=== PATIENT | female | born 1985 | race Caucasian/White ===

== ENCOUNTER 2017-01-09 10:45 | Inpatient (IN) ==
[2017-01-09] MEDS ORDERED: PEPCID IV PRN (11:49)
[2017-01-09] MEDS ORDERED: LR 500 ML IV ONE (11:49)
[2017-01-09] MEDS ORDERED: REGLAN PO ONE (11:49)
[2017-01-09] MEDS ORDERED: PEPCID PO PRN (11:49)
[2017-01-09] MEDS ORDERED: PITOCIN 30 UNITS/LR 30 UNITS/500 ML IV.SOLN IV SCH (11:49)
[2017-01-09] MEDS ORDERED: ZOFRAN IV PRN (11:49)
[2017-01-09] MEDS ORDERED: TYLENOL PO PRN (11:49)
[2017-01-09] MEDS ORDERED: PEPCID PO ONE (11:49)
[2017-01-09] MEDS ORDERED: KEFZOL 1 GM/D5W 1 GM/50 ML IVPB IV PRN (11:49)
[2017-01-09] MEDS ORDERED: STADOL IV PRN (11:49)
[2017-01-09 11:55] LABS: URINE SOURCE VOIDED
[2017-01-09] MEDS ORDERED: CLINDAMYCIN 900 MG/NS 900 MG/50 ML IVPB IV SCH (12:00)
[2017-01-09] MEDS ORDERED: SODIUM CHLORIDE 0.9% INJ SCH (12:00)
[2017-01-09] MEDS: LR 1,000 ML IV SCH ×2 (12:10→12:52)
[2017-01-09 12:24] LABS: MANUAL DIFF NEEDED? NO
[2017-01-09 12:32] LABS: BASO% 0.2 % (0.0-0.8); EOS# 0.03 X1000 (0.0-0.7); EOS% 0.3 % (0.0-10.0); HEMATOCRIT 42.3 % (37.0-47.0); HEMOGLOBIN 14.2 g/dL (12.0-16.0); IMM GRAN# 0.05 X1000 (0.0-0.04); IMM GRAN% 0.5 % (0.0-0.5); LYMPH# 2.31 X1000 (1.2-3.4); LYMPH% 22.4 % (20.5-51.1); MCH 28.5 PG (27-31); MCHC 33.6 g/dL (33-37); MCV 84.8 FL (81-99); MONO# 0.72 X1000 (0.11-0.59); MPV 10.4 FL (7.4-10.4); NEUT% 69.6 % (42.2-75.2); PLT 218 X1000 (130-400); RBC 4.99 XMIL (4.2-5.4)
[2017-01-09 12:40] LABS: BILIRUBIN URINE NEGATIVE (NEGATIVE); BLOOD URINE TRACE (NEGATIVE); CLARITY CLEAR (CLEAR); COLOR YELLOW; GLUCOSE URINE NEGATIVE (NEGATIVE); LEUKOCYTES URINE NEGATIVE (NEGATIVE); NITRITE URINE NEGATIVE (NEGATIVE); PH URINE 6.5; PROTEIN URINE NEGATIVE (NEGATIVE); SP GRAVITY URINE 1.015; UROBILINOGEN URINE NORMAL
[2017-01-09] MEDS ORDERED: FENTANYL-BUPIV-NS 2 MCG-0.1% 200 ML EPIDURAL SCH (14:00)
[2017-01-09] MEDS ORDERED: MINERAL OIL TOP ONE (14:10)
[2017-01-09] MEDS ORDERED: XYLOCAINE-MPF 1% INJ ONE (14:11)
[2017-01-09] MEDS ORDERED: XYLOCAINE-MPF 2% ONE (14:21)
[2017-01-09] MEDS ORDERED: BENADRYL PO PRN (15:59)
[2017-01-09] MEDS ORDERED: MOTRIN PO PRN (15:59)
[2017-01-09] MEDS ORDERED: NORCO-10 PO PRN (15:59)
[2017-01-09] MEDS ORDERED: HYDROXYZINE PO PRN (15:59)
[2017-01-09] MEDS ORDERED: M-M-R II VACCINE SUBQ ONE (15:59)
[2017-01-09] MEDS ORDERED: AMBIEN PO PRN (15:59)
[2017-01-09] MEDS ORDERED: CYTOTEC PO PRN (15:59)
[2017-01-09] MEDS ORDERED: PITOCIN IM PRN (15:59)
[2017-01-09] MEDS ORDERED: PITOCIN 20 UNITS/LR 20 UNITS/1,000 ML IV.SOLN IV SCH (15:59)
[2017-01-09] MEDS ORDERED: MINERAL OIL PO PRN (15:59)
[2017-01-09] MEDS ORDERED: NORCO-5 PO PRN (15:59)
[2017-01-09] MEDS ORDERED: PERI MEDS (DERMOPLAST/NUPERCAINAL/TUCKS) MISC PRN (15:59)
[2017-01-09] MEDS ORDERED: HYDROXYZINE IM PRN (15:59)
[2017-01-09] MEDS ORDERED: PITOCIN 30 UNITS/LR 30 UNITS/500 ML IV.SOLN IV ONE (15:59)
[2017-01-09] MEDS ORDERED: XYLOCAINE-MPF 1% INJ PRN (15:59)
[2017-01-09] MEDS ORDERED: BOOSTRIX VACCINE IM ONE (15:59)
[2017-01-09] MEDS ORDERED: BENADRYL IV PRN (15:59)
--- NOTE | 2017-01-09 16:15 | OPERATIVE NOTE ---
PROCEDURE DATE: 01/09/2017 PREDELIVERY DIAGNOSES: 1. Intrauterine at 38 and plus. 2. carrier status positive. 3. Positive depression affected in active labor. POST DELIVERY DIAGNOSES: 1. Intrauterine at 38 and plus. 2. carrier status positive. 3. Positive depression affected in active labor. PROCEDURE: Vaginal delivery. PHYSICIAN: Dr. Marco Choi. ANESTHESIA: Epidural with Dr. Wallace FINDINGS: Viable female infant. Do not have weight or Apgars at this time. A second-degree midline episiotomy repaired with 3-0 Vicryl. Cord 3 vessels. Placenta spontaneous, intact. Counts correct. ESTIMATED BLOOD LOSS: 100 mL. Please refer to Ms. Vasquez's records. She presented this morning at 38 weeks and 4 days in active labor. Known to be GBS status positive and being treated for depression through the pregnancies. She is also noted to have a 25 pound weight loss during the but did not appear to affect her in any way. She is admitted. Before antibiotics are started, she spontaneously ruptured and antibiotics are started, and she progresses spontaneously and becomes complete approximately 2 hours after admission. Reached complete cervical dilatation. Begins pushing, soon after crowned, at which point the bed is broken down. The second-degree midline episiotomy was cut. She delivers a viable female infant, occiput anterior, over the episiotomy. Once the head delivered, shoulders delivered without difficulty and is followed by the rest of the body. Cord was doubly clamped, cut, and care of handed over to pediatric personnel. Cord blood was obtained. It was a 3-vessel cord. Gentle traction on the cord resulted in delivery of the placenta. After this was done, second-degree midline episiotomy repaired with 3-0 Vicryl in the usual fashion. Then count was done. There was 1 needle, 10 Ray-Tecs, one vag pack. There were no clots or foreign material in the vagina. Again, estimated blood loss 100 mL. Expect routine . cc: Marco Choi MD
[2017-01-09] MEDS ORDERED: ZOLOFT PO ONE (17:02)
[2017-01-09] MEDS: PERICOLACE PO SCH (20:11)
[2017-01-09] MEDS ORDERED: ATIVAN PO ONE (22:58)
[2017-01-10 05:51] LABS: MANUAL DIFF NEEDED? NO
[2017-01-10 06:10] LABS: BASO% 0.1 % (0.0-0.8); EOS# 0.07 X1000 (0.0-0.7); EOS% 0.6 % (0.0-10.0); HEMATOCRIT 34.4 % (37.0-47.0); HEMOGLOBIN 11.2 g/dL (12.0-16.0); IMM GRAN# 0.05 X1000 (0.0-0.04); IMM GRAN% 0.4 % (0.0-0.5); LYMPH% 25.6 % (20.5-51.1); MCHC 32.6 g/dL (33-37); MONO# 0.86 X1000 (0.11-0.59); MONO% 7.6 % (1.7-9.3); MPV 10.4 FL (7.4-10.4); NEUT% 65.7 % (42.2-75.2); PLT 178 X1000 (130-400)
[2017-01-10] MEDS: ZOLOFT PO SCH (08:40)
[2017-01-10] MEDS: PRECARE PO SCH (08:40)
[2017-01-10] MEDS: HEMOCYTE PLUS CAPSULE PO SCH (08:40)
[2017-01-10] MEDS: PERICOLACE PO SCH (20:27)
[2017-01-11] MEDS: ZOLOFT PO SCH (08:45)
[2017-01-11] MEDS: HEMOCYTE PLUS CAPSULE PO SCH (08:45)
[2017-01-11] MEDS: PRECARE PO SCH (08:46)
[2017-01-11 11:36] VITALS: BP 146/92
== END 2017-01-11 15:45 | disposition home or self-care (01) ==
LOC: P.OPLD 10:45 → P.LD 10:48 → P.WC 19:52
PROVIDERS: ADMIT Obstetrics & Gynecology; ATTEND Obstetrics & Gynecology